=== PATIENT | female | born 1970 | race Caucasian/White ===

== ENCOUNTER → 2016-08-07 | Outpatient (CLI) | payer BC | LOC: RAD 18:39 | PROVIDERS: ATTEND Specialist | DX: C50.919 Malignant neoplasm of unspecified site of unspecified female breast (principal) | CPT/HCPCS: 78815; A9552 ==

== ENCOUNTER → 2016-08-18 | Day surgery (SDC) | payer BC | LOC: RAD 12:30 | PROVIDERS: ATTEND Specialist | PROC: 07B63ZX Excision of Left Axillary Lymphatic, Percutaneous Approach, Diagnostic (ICD-10-PCS; principal; 2016-08-18) | DX: C50.919 Malignant neoplasm of unspecified site of unspecified female breast (principal) | CPT/HCPCS: 38505; 71010; 76942; 88305; 88341; 88342 ==

== ENCOUNTER 2016-09-06 10:42 | Day surgery (SDC) | payer BC ==
[2016-09-06 11:57] LABS: ABSOLUTE BASOPHILS # (AUTO) 0.1 10^3/uL (0.0-0.2); ABSOLUTE EOSINOPHILS # (AUTO) 0.2 10^3/uL (0.0-0.6); ABSOLUTE MONOCYTES (AUTO) 0.6 10^3/uL (0.1-1.4); ABSOLUTE NEUT (AUTO) 5.2 10^3/uL (1.7-8.2); EOSINOPHILS % (AUTO) 2.4 % (0-6); HEMOGLOBIN 12.8 g/dL (12.0-15.5); HGB HCT DIFFERENCE 0.4; LYMPHOCYTES % (AUTO) 24.7 % (13-45); MEAN CORPUSCULAR HEMOGLOBIN 30.3 pg (27.0-33.4); MEAN CORPUSCULAR HGB CONC 33.8 g/dL (32.0-36.0); MEAN CORPUSCULAR VOLUME 90 fl (80-97); RED BLOOD COUNT 4.23 10^6/uL (3.72-5.28); RED CELL DISTRIBUTION WIDTH 13.1 % (11.5-14.0); SEGMENTED NEUTROPHILS % (AUTO) 63.9 % (42-78); WHITE BLOOD COUNT 8.1 10^3/uL (4.0-10.5)
[2016-09-06] MEDS ORDERED: CLINDAMYCIN 600 MG/D5W RTU 600 MG/50 ML RTUPB IV PRN (11:57)
[2016-09-06] MEDS ORDERED: BACITRACIN INJ 50,000 UNIT VIAL IR ONE (12:30)
[2016-09-06] MEDS ORDERED: MIDAZOLAM 2 MG/2 ML INJ ONE (12:41)
[2016-09-06] MEDS ORDERED: FENTANYL CITRATE INJ/PF 100 MCG/2 ML AMPUL ONE (12:41)
[2016-09-06 13:21] LABS: ANION GAP 10 (5-19); BLOOD UREA NITROGEN 11 mg/dL (7-20); CALCIUM 9.2 mg/dL (8.4-10.2); CARBON DIOXIDE 26 mmol/L (22-30); CHLORIDE 106 mmol/L (98-107); CREATININE RESULT 0.48 mg/dL (0.52-1.25); GLUCOSE 84 mg/dL (75-110); POTASSIUM 4.1 mmol/L (3.6-5.0); SODIUM 141.8 mmol/L (137-145)
[2016-09-06] MEDS ORDERED: LIDOCAINE 0.5% INJ-PF (5 MG/ML) 50 ML SDV ONE (13:27)
--- NOTE | 2016-09-06 14:56 | PDOC DISCHARGE SUMMARY ---
Discharge Summary (SDC) - Discharge Final Diagnosis: Breast cancer. Date of Surgery: 09/06/16 Discharge Date: 09/06/16 Condition: Good Treatment or Instructions: #1 discharge patient home after achieving ASU criteria. #2 continue medications per medication reconciliation sheet. #3 follow-up in office by appointment in about 1 week, call for appointment. #4 dressing to be left on until office. #5 may shower starting in 48 hours. Important to keep dressings clean and dry Discharge Diet: As Tolerated Respiratory Treatments at Home: Deep Breathing/Coughing Discharge Activity: Activity As Tolerated Report the Following to Your Physician Immediately: Shortness of Breath, Unusual Bleeding
--- NOTE | 2016-09-06 14:58 | Operative Report ---
Operative Report DATE OF SURGERY: 09/06/16 PREOPERATIVE DIAGNOSIS: Breast cancer POSTOPERATIVE DIAGNOSIS: Breast cancer OPERATION: #1 ultrasound evaluation of the right internal jugular vein. #2 insertion of Port-A-Cath via real-time access in the right internal jugular vein. #3 angiogram and interpretation. SURGEON: KATYA GALEAS COMPLIANCE ENGINEER: none ANESTHESIA: Moderate Sedation TISSUE REMOVED OR ALTERED: Not applicable. COMPLICATIONS: None ESTIMATED BLOOD LOSS: 5 mL. INTRAOPERATIVE FINDINGS: Of a satisfactory right internal jugular vein to support Port-A-Cath. Port-A-Cath in good position with tip down in right atrium. Easy egress of blood and ingress of heparinized solution. PROCEDURE: After obtaining informed consent, the patient was taken to the catheter lab and positioned supine. The [right] neck and chest were prepared with chlorhexidine and draped out with sterile linen. After the " universal timeout", in which it was verified that the patient continued to receive antibiotic, the procedure commenced. A steriley sheathed ultrasound probe was used to evaluate the [ right] internal jugular vein. Local anesthesia was infiltrated adjacent to the probe. Access into the [right] internal jugular vein was obtained using a micropuncture needle, followed by micropuncture wire and then a micropuncture catheter. This was followed by introduction of a 0.035 guidewire the tip of which was placed down into the inferior vena cava . The port sites was marked , locally anesthetized and incision made. Dissection now proceeded to the deep subcutaneous subcutaneous tissues so that a pocket for the port was made. Meticulous hemostasis was secured and the catheter was tunneled between the 2 incisions. Proximally, the catheter was now positioned using a peel-away sheath. Distally the catheter was tailored to an appropriate length and then mated to the port using the contained fixating device. The port was now placed in the pocket and the catheter optimally positioned. The port was accessed with a Wong needle and an angiogram done under digital subtraction. The findings as dictated. With adequate and satisfactory positioning, both lumens of the chamber were irrigated with heparinized solution. The wounds were now closed using interrupted 3-0 PDS to the subcutaneous tissues and a continuous subcuticular suture of 4-0 Monocryl to the skin. These are reinforced with Steri-Strips over benzoin and then dressings applied. Time: 0.2 Minute. Dose: 47 Gy Contrast: 5 mls. Isovue 300. Copies of the dictated operative report for Dr. Katya Rahman MD.
[2016-09-06 16:07] VITALS: BP 120/72
== END 2016-09-06 15:58 | disposition home or self-care (01) ==
LOC: CCL 10:42
PROVIDERS: ATTEND Surgery
PROC: 05HM33Z Insertion of Infusion Device into Right Internal Jugular Vein, Percutaneous Approach (ICD-10-PCS; principal; 2016-09-06)
DX: C50.919 Malignant neoplasm of unspecified site of unspecified female breast (principal); Z90.13 Acquired absence of bilateral breasts and nipples; Z88.1 Allergy status to other antibiotic agents; Z79.899 Other long term (current) drug therapy
CPT/HCPCS: 36415; 85025; 80048; 36561; 76937; 77001; C1752; Q9967; J2250; J3490 ×2; J3010; J1644

== ENCOUNTER 2016-09-29 09:18 | Emergency (ER) | payer BC ==
[2016-09-29 09:25] VITALS: BP 132/76
--- NOTE | 2016-09-29 09:45 | ER Document Report ---
ED Medical Screen (RME) - General Chief Complaint: Numbness Stated Complaint: ARM PAIN Notes: This 46-year-old female patient comes emergency room complaining of left proximal thigh pain and some swelling. She has recurrent breast cancer with metastases. She recently started chemotherapy, last dose was one week ago. She woke up this morning about 3 AM with pain in the left thigh. She later woke up with numbness tingling to the left upper extremity, but that is not a new finding. I have greeted and performed a rapid initial assessment of this patient. A comprehensive ED assessment and evaluation of the patient, analysis of test results and completion of the medical decision making process will be conducted by additional ED providers. TRAVEL OUTSIDE OF THE [place] IN LAST 30 DAYS: No - Related Data Allergies/Adverse Reactions: ceftriaxone [From Rocephin] Allergy (Verified 09/06/16 10:58) Hives Past Medical History - Past Medical History Cardiac Medical History: Reports: Hx Hypertension Denies: Hx Coronary Artery Disease, Hx Heart Attack Pulmonary Medical History: Denies: Hx Asthma, Hx Bronchitis, Hx COPD, Hx Pneumonia Neurological Medical History: Denies: Hx Cerebrovascular Accident, Hx Seizures Renal/ Medical History: Denies: Hx Peritoneal Dialysis Malignancy Medical History: Reports: Hx Breast Cancer - inflammatory Musculoskeltal Medical History: Denies Hx Arthritis Past Surgical History: Reports: Hx Breast Surgery - L mastectomy, Hx Mastectomy - bilaterally-cancer - Immunizations Hx Diphtheria, Pertussis, Tetanus Vaccination: Yes Physical Exam - Vital signs Vitals: Temp Pulse Resp BP Pulse Ox 97.9 F 75 20 132/76 H 97 09/29/16 09:21 09/29/16 09:21 09/29/16 09:21 09/29/16 09:21 09/29/16 09:21 Course - Vital Signs Vital signs: Temp Pulse Resp BP Pulse Ox 97.9 F 75 20 132/76 H 97 09/29/16 09:21 09/29/16 09:21 09/29/16 09:21 09/29/16 09:21 09/29/16 09:21
--- NOTE | 2016-09-29 10:20 | ER Document Report ---
ED General - General Chief Complaint: Numbness Stated Complaint: ARM PAIN Notes: Patient is complaining of pain in the left thigh which began during the night. She's never had this pain before. It's intermittently present and doesn't feel like a cramp. She is able to walk, but she continues to have the pain when walking. Has no history of injury. Patient does have a history of recurrent breast cancer metastases for which she is on chemotherapy, receiving her second dose just last week. She has noted some numbness and tingling in her toes and fingers for the past week. Patient does not note any swelling, erythema, etc. of the left leg. Patient has had some nausea but not vomiting. Has some lower abdominal pains over the past week. Denies any chest pains. Denies difficulty breathing or shortness of breath. Has had some urinary frequency. Unaware of any fevers. TRAVEL OUTSIDE OF THE [place] IN LAST 30 DAYS: No - Related Data Allergies/Adverse Reactions: ceftriaxone [From Rocephin] Allergy (Verified 09/06/16 10:58) Hives Past Medical History - Social History Smoking Status: Unknown if Ever Smoked Cigarette use (# per day): No Family History: None, Reviewed & Not Pertinent Patient has suicidal ideation: No Patient has homicidal ideation: No - Past Medical History Cardiac Medical History: Reports: Hx Hypertension Denies: Hx Coronary Artery Disease, Hx Heart Attack Pulmonary Medical History: Denies: Hx Asthma, Hx Bronchitis, Hx COPD, Hx Pneumonia Neurological Medical History: Denies: Hx Cerebrovascular Accident, Hx Seizures Malignancy Medical History: Reports: Hx Breast Cancer - Recurrent with metastases, on chemotherapy Musculoskeltal Medical History: Denies Hx Arthritis Past Surgical History: Reports: Hx Breast Surgery - Bilateral mastectomy, Hx Section, Hx Mastectomy - bilaterally-cancer - Immunizations Hx Diphtheria, Pertussis, Tetanus Vaccination: Yes Review of Systems - Review of Systems Notes: REVIEW OF SYSTEMS: CONSTITUTIONAL : Denies fever. EENT: Denies eye, ear, nose or mouth or throat pain or other symptoms. CARDIOVASCULAR: Denies chest pain. RESPIRATORY: Denies cough, chest congestion, or shortness of breath. GASTROINTESTINAL: See history of present illness. GENITOURINARY: Denies difficulty or painful urinating, blood in urine. Has some urinary frequency. MUSCULOSKELETAL: Denies back or neck pain. Denies joint pain or swelling see history of present illness. SKIN: Denies rash or skin lesions. NEUROLOGICAL: Denies LOC or altered mental status. Denies headache. Denies sensory loss or motor deficits. ALL OTHER SYSTEMS REVIEWED AND NEGATIVE. Physical Exam - Vital signs Vitals: Temp Pulse Resp BP Pulse Ox 97.9 F 75 20 132/76 H 97 09/29/16 09:21 09/29/16 09:21 09/29/16 09:21 09/29/16 09:21 09/29/16 09:21 Interpretation: Normal - Notes Notes: PHYSICAL EXAMINATION: GENERAL: Well-appearing, in no acute distress. HEAD: Atraumatic, normocephalic. EYES: Pupils equal round and reactive to light, extraocular movements intact. ENT: oropharynx clear without exudates. Moist mucous membranes. NECK: Normal range of motion, supple. LUNGS: Breath sounds clear and equal bilaterally. Bilateral mastectomy. HEART: Regular rate and rhythm without murmurs. ABDOMEN: Soft, nontender. No guarding or rebound. BACK: No tenderness throughout entire back. EXTREMITIES: Normal range of motion without pain. No swelling noted of the left thigh. No erythema. No significant tenderness on examination. Warm left leg and foot with good DP pulse NEUROLOGICAL: Normal speech, normal gait. Normal sensory, motor, and reflex exams. Awake, alert, and oriented x3. Cranial nerves normal. PSYCH: Normal mood, normal affect. SKIN: Warm, dry, no rashes. Course - Re-evaluation Re-evalutation: 09/29/16 12:32 All lab studies normal. 09/29/16 12:32 - Vital Signs Vital signs: Temp Pulse Resp BP Pulse Ox 97.9 F 76 20 132/76 H 98 09/29/16 09:21 09/29/16 09:21 09/29/16 09:21 09/29/16 09:21 09/29/16 09:21 - Laboratory Result Diagrams: 09/29/16 11:15 09/29/16 11:15 Laboratory results interpreted by me: 09/29/16 09/29/16 09/29/16 11:15 11:15 11:44 Hct 34.8 L AST 53 H ALT 88 H Urine Blood MODERATE H Ur Leukocyte Esterase SMALL H Discharge - Discharge Clinical Impression: Left leg pain Condition: Stable Disposition: HOME, SELF-CARE Additional Instructions: Leg Pain, Nonspecific We did not find an obvious cause for your leg pain. There's no sign of blood clot, infection, or other serious disease. Possible causes of vague leg pain include muscle or joint inflammation, disc disease in the lower back, pressure on the nerves in the back, or reduced blood flow through the arteries of the leg. Rest the leg. Pain can be eased with an antiinflammatory pain medicine such as ibuprofen. If the pain involves a small area, a heating pad might help. Call the doctor or return if the leg becomes swollen, weak, discolored, or increasingly painful, or if you develop any other significant change in your health. NORMAL EXAM AND WORKUP: At this time, your examination and workup show no significant abnormality. No significant abnormal physical findings were noted. All laboratory, EKG, and imaging (x-ray, CT scans, ultrasound) studies that were ordered show no significant abnormality. Although your examination and all studies that were ordered showed no significant abnormal finding, there are no examinations and no studies that are 100% accurate. There is always the possibility that some abnormality could exist and not be detected with physical examination or within the limits and capabilities of laboratory and other studies. You should return or follow up as you were instructed on your visit today for further evaluation if your symptoms do not resolve. FOLLOW-UP CARE: If you have been referred to a physician for follow-up care, call the physician s office for an appointment as you were instructed or within the next two days. If you experience worsening or a significant change in your symptoms, notify the physician immediately or return to the Emergency Department at any time for re-evaluation. At this time, your is completely normal. No evidence of blood clots in your leg. Return if you develop new or worsening symptoms of any sort.
--- NOTE | 2016-09-29 11:07 | XCELERA REPORT ---
[address] [address] Lower Extremity Venous Evaluation Name: AURELIANO AYALA Age: 46 yrs Gender: Female : 1970 Patient Status: Preadmit Patient Location: ER Study Date: 09/29/2016 10:28 AM Procedure: Color flow and duplex imaging of the veins of the left lower extremity as well as the right Common Femoral vein. Reason For Study: L thigh pain, swelling, metastatic breast cancer Ordering Physician: REBECCA SALAS Performed By: Viviane Phelps Right Sided Venous Evaluation The right common femoral vein is fully compressible. Spontaneous and phasic flow is present in the right common femoral vein. Left Sided Venous Evaluation Normal vessel filling wall to wall, compression and augmentation as well as Colour flow down to the infrageniculate veins. Critical Findings Called in to the ER at 1100. Interpretation Summary No duplex evidence of DVT or obstruction in the left lower extremity nor in the right Common Femoral vein. : REBECCA SALAS > Elgin Rahman
[2016-09-29 11:25] LABS: ABSOLUTE EOSINOPHILS # (AUTO) 0.1 10^3/uL (0.0-0.6); ABSOLUTE LYMPHOCYTES (AUTO) 1.5 10^3/uL (0.5-4.7); ABSOLUTE MONOCYTES (AUTO) 0.5 10^3/uL (0.1-1.4); ABSOLUTE NEUT (AUTO) 2.9 10^3/uL (1.7-8.2); BASOPHILS % (AUTO) 0.9 % (0-2); HEMATOCRIT 34.8 % (36.0-47.0); HEMOGLOBIN 12.3 g/dL (12.0-15.5); HGB HCT DIFFERENCE 2.1; LYMPHOCYTES % (AUTO) 29.2 % (13-45); MEAN CORPUSCULAR HGB CONC 35.4 g/dL (32.0-36.0); MEAN CORPUSCULAR VOLUME 90 fl (80-97); MONOCYTES % (AUTO) 10.5 % (3-13); RED BLOOD COUNT 3.85 10^6/uL (3.72-5.28); RED CELL DISTRIBUTION WIDTH 13.3 % (11.5-14.0); SEGMENTED NEUTROPHILS % (AUTO) 58.4 % (42-78)
[2016-09-29 11:49] LABS: ALANINE AMINOTRANSFERASE 88 U/L (9-52); ALBUMIN 3.9 g/dL (3.5-5.0); ALKALINE PHOSPHATASE 84 U/L (38-126); ANION GAP 12 (5-19); ASPARTATE AMINO TRANSFERASE 53 U/L (14-36); BILIRUBIN,DIRECT 0.1 mg/dL (0.0-0.4); BILIRUBIN,TOTAL 0.7 mg/dL (0.2-1.3); BLOOD UREA NITROGEN 12 mg/dL (7-20); CARBON DIOXIDE 24 mmol/L (22-30); CHLORIDE 105 mmol/L (98-107); CREATININE RESULT 0.57 mg/dL (0.52-1.25); GLUCOSE 87 mg/dL (75-110); POTASSIUM 4.5 mmol/L (3.6-5.0); SODIUM 140.5 mmol/L (137-145); TOTAL PROTEIN 6.6 g/dL (6.3-8.2)
[2016-09-29 12:07] LABS: APPEARANCE,URINE SLIGHTLY-CLOUDY; BILIRUBIN,URINE NEGATIVE (NEGATIVE); GLUCOSE, URINE NEGATIVE (NEGATIVE); KETONES,URINE NEGATIVE (NEGATIVE); LEUKOCYTE ESTERASE,URINE SMALL (NEGATIVE); NITRITE,URINE NEGATIVE (NEGATIVE); PROTEIN,URINE NEGATIVE (NEGATIVE); URINE SPECIFIC GRAVITY 1.017; UROBILINOGEN,URINE NEGATIVE mg/dL (<2.0)
[2016-09-29 12:13] LABS: BACTERIA,URINE 2+ /HPF; RBC,URINE 0-1 /HPF
== END 2016-09-29 12:48 | disposition home or self-care (01) ==
LOC: ER 09:18
DX: M79.652 Pain in left thigh (principal); R20.2 Paresthesia of skin; R20.0 Anesthesia of skin; C79.9 Secondary malignant neoplasm of unspecified site; R11.0 Nausea; R10.30 Lower abdominal pain, unspecified; R35.0 Frequency of micturition; I10 Essential (primary) hypertension; Z88.1 Allergy status to other antibiotic agents; Z90.13 Acquired absence of bilateral breasts and nipples; Z85.3 Personal history of malignant neoplasm of breast
CPT/HCPCS: 36415; 80053; 81001; 85025; 87086; 93971; 99284

== ENCOUNTER → 2016-11-02 | Outpatient (CLI) | payer BC ==
--- NOTE | 2016-11-02 17:07 | RADIOLOGY REPORT (SQ) ---
EXAM DESCRIPTION: PET CT SKULL/THIGH COMPLETED DATE/TIME: 11/02/2016 3:45 pm REASON FOR STUDY: BREAST CA C50.919 MALIGNANT NEOPLASM OF UNSP SITE OF UNSPECIFIED FEMAL COMPARISON: 08/07/2016. RADIONUCLIDE AND DOSE: 15.0 mCi F18 FDG The route of agent administration: Intravenous FASTING BLOOD SUGAR: 79 mg/dl CONTRAST TYPE AND DOSE: No CT contrast given. TECHNIQUE: Blood glucose level was verified. Above dose of FDG was injected intravenously. 2-D seg mented attenuation correction images were obtained from the base of the skull to the midthighs. Nonc ontrast CT images were obtained for attenuation correction and fusion with emission images. CT image s were performed without oral or intravenous contrast and are not sensitive for parenchymal lesions. A series of overlapping emission PET images were obtained. Images reviewed and manipulated at [facility] work station by the radiologist. Images stored on PACS. LIMITATIONS: None. FINDINGS: HEAD AND NECK: No areas of abnormal metabolic activity in the soft tissues of the head and neck. CHEST: Multiple pulmonary nodules measuring less than 1 cm. These have increased in size compared to the prior CT. The largest is in the right lung base adjacent to the diaphragm, currently measuring 7 mm with prior measurement of 4 mm. No measurable metabolic activity, secondary to the small size. Again seen is a left axillary lymph node, measuring 1.6 cm, with mean SUV value 4.57. Slightly smal ler compared to the prior study with previous SUV value 7. The small nodule in the high right axilla between the pectoralis minor muscle and subclavian artery is smaller and not as clearly seen on the current study. Right axillary lymph does have decreased in size with the largest currently measuring 6 mm with mean SUV value of 2.3. Previously measured 1.5 cm with SUV value 2.8. ABDOMEN AND PELVIS: No areas of abnormal metabolic activity in the abdomen or pelvis. Expected physi ologic activity is present in the genitourinary system and bowel. PROXIMAL LOWER EXTREMITIES: No areas of abnormal metabolic activity in the soft tissues of the lower extremities. SKELETON: Numerous focal bony lesions with increased activity. Right scapula, mean SUV value 3.12. Anterior body of T9, mean SUV 5.72. Previous value 3.7. The lesion on the left side of T11 current ly demonstrates no increased metabolic activity. Fracture of the right 9th rib with focal lytic area , concerning for pathologic fracture. Mean SUV value 3.01. Increased activity in the right pedicle of L2 with no noticeable lesion on CT. Mean SUV value 4.16. Lesion in the right pubic bone adjacent to the pubic symphysis, mean SUV 6.84. ADDITIONAL CT FINDINGS: No additional significant findings on the noncontrast CT images. OTHER: No other significant findings. IMPRESSION: 1. INTERVAL PROGRESSION IN THE PULMONARY NODULES CONCERNING FOR METASTATIC INVOLVEMENT, ALTHOUGH CURR ENTLY TOO SMALL TO DEMONSTRATE NOTICEABLE ACTIVITY ON PET IMAGING. 2. AXILLARY ADENOPATHY, LEFT GREATER THAN RIGHT, SLIGHTLY IMPROVED. 3. NUMEROUS BONY LESIONS DESCRIBED CONSISTENT WITH METASTASES. UNCHANGED OR SLIGHTLY IMPROVED. TECHNICAL DOCUMENTATION: JOB ID: [id number] [employer]- All Rights Reserved
== END ==
LOC: RAD 10-30 16:32
PROVIDERS: ATTEND Specialist
DX: C50.919 Malignant neoplasm of unspecified site of unspecified female breast (principal)
CPT/HCPCS: 78815; A9552

== ENCOUNTER → 2016-11-08 | Outpatient (CLI) | payer BC ==
[2016-11-08 14:26] LABS: ABSOLUTE BASOPHILS # (AUTO) 0.1 10^3/uL (0.0-0.2); ABSOLUTE EOSINOPHILS # (AUTO) 0.1 10^3/uL (0.0-0.6); ABSOLUTE LYMPHOCYTES (AUTO) 1.2 10^3/uL (0.5-4.7); ABSOLUTE MONOCYTES (AUTO) 0.1 10^3/uL (0.1-1.4); ABSOLUTE NEUT (AUTO) 3.2 10^3/uL (1.7-8.2); BASOPHILS % (AUTO) 1.4 % (0-2); EOSINOPHILS % (AUTO) 2.7 % (0-6); HEMATOCRIT 35.2 % (36.0-47.0); HEMOGLOBIN 11.8 g/dL (12.0-15.5); HGB HCT DIFFERENCE 0.2; LYMPHOCYTES % (AUTO) 25.3 % (13-45); MEAN CORPUSCULAR HEMOGLOBIN 32.4 pg (27.0-33.4); MEAN CORPUSCULAR HGB CONC 33.6 g/dL (32.0-36.0); MEAN CORPUSCULAR VOLUME 96 fl (80-97); MONOCYTES % (AUTO) 1.8 % (3-13); RED BLOOD COUNT 3.65 10^6/uL (3.72-5.28); RED CELL DISTRIBUTION WIDTH 17.6 % (11.5-14.0); SEGMENTED NEUTROPHILS % (AUTO) 68.8 % (42-78); WHITE BLOOD COUNT 4.7 10^3/uL (4.0-10.5)
== END ==
LOC: LAB 13:54
PROVIDERS: ATTEND Radiology Radiation Oncology
DX: C50.412 Malignant neoplasm of upper-outer quadrant of left female breast (principal); C77.3 Secondary and unspecified malignant neoplasm of axilla and upper limb lymph nodes; C79.51 Secondary malignant neoplasm of bone; C78.01 Secondary malignant neoplasm of right lung; Z17.1 Estrogen receptor negative status [ER-]
CPT/HCPCS: 36415; 85025

== ENCOUNTER → 2016-12-19 | Outpatient (CLI) | payer BC ==
--- NOTE | 2016-12-19 13:44 | RADIOLOGY REPORT (SQ) ---
EXAM DESCRIPTION: NM WHOLE BODY BONE SCAN COMPLETED DATE/TIME: 12/19/2016 12:24 pm REASON FOR STUDY: BREAST CA (C50.412) C50.412 MALIG NEOPLASM OF UPPER-OUTER QUADRANT OF LEFT FEMAL COMPARISON: PET-CT 11/02/2016, 08/07/2016 RADIONUCLIDE AND DOSE: 20.2 millicuries Tc99m MDP. The route of agent administration: Intravenous. ADDITIONAL DRUGS AND DOSES: None. TECHNIQUE: Routine delayed images at 3 hours post radionuclide injection acquired of the bony skelet on including anterior and posterior whole-body projections and additional focused images as needed. LIMITATIONS: None. FINDINGS: BONES: There is increased activity along the right lateral 9th rib, which correlates with bony sclerosis on PET-CT 11/02/2016. There is increased uptake along the left anterior 7th or 8th rib which may represent a bony metastati c lesion also No increased uptake over the skeletal elsewhere worrisome for metastatic disease. KIDNEYS: Symmetric excretion without obstruction. OTHER: No other significant finding. IMPRESSION: Right and left rib activity worrisome for metastatic disease COMMENT: PQRS 3570F: Current bone scan is compared with any available plain radiographs, prior bone scans, and CT/MRI. TECHNICAL DOCUMENTATION: JOB ID: [id number] [employer]- All Rights Reserved
== END ==
LOC: RAD 08:08
PROVIDERS: ATTEND Radiology Radiation Oncology
DX: C50.412 Malignant neoplasm of upper-outer quadrant of left female breast (principal); C77.3 Secondary and unspecified malignant neoplasm of axilla and upper limb lymph nodes; Z17.1 Estrogen receptor negative status [ER-]
CPT/HCPCS: 78306; A9561; Q9969

== ENCOUNTER → 2017-03-06 | Outpatient (CLI) | payer BC ==
--- NOTE | 2017-03-07 08:36 | RADIOLOGY REPORT (SQ) ---
EXAM DESCRIPTION: NM WHOLE BODY BONE SCAN COMPLETED DATE/TIME: 03/06/2017 12:51 pm REASON FOR STUDY: BREAST CA/BONE CA C50.112 MALIGNANT NEOPLASM OF CENTRAL PORTION OF LEFT FEMALE COMPARISON: 12/19/2016. RADIONUCLIDE AND DOSE: 20.0 millicuries Tc99m MDP. The route of agent administration: Intravenous. ADDITIONAL DRUGS AND DOSES: None. TECHNIQUE: Routine delayed images at 3 hour post radionuclide injection acquired of the bony skeleto n including anterior and posterior whole-body projections and additional focused images as needed. LIMITATIONS: None. FINDINGS: BONES: Focal areas of activity in the right and left ribs unchanged. No new areas of acti vity. Areas of activity in several joints of the extremities consistent with degenerative change. KIDNEYS: Symmetric excretion without obstruction. OTHER: No other significant finding. IMPRESSION: RIGHT AND LEFT RIB ACTIVITY UNCHANGED. NO NEW LESIONS. COMMENT: Quality measure 147: Current bone scan is compared with any available plain radiographs, p rior bone scans, and CT/MRI. TECHNICAL DOCUMENTATION: JOB ID: [id number] [employer]- All Rights Reserved
== END ==
LOC: RAD 08:25
PROVIDERS: ATTEND Physician Assistant
DX: C50.112 Malignant neoplasm of central portion of left female breast (principal); C79.51 Secondary malignant neoplasm of bone
CPT/HCPCS: 78306; A9561; Q9969

== ENCOUNTER → 2017-03-08 | Outpatient (CLI) | payer BC ==
--- NOTE | 2017-03-08 10:40 | RADIOLOGY REPORT (SQ) ---
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 TECHNIQUE: CT scan of the chest performed using helical scanning technique with dynamic intravenous contrast injection. Images reviewed with lung, soft tissue and bone windows. Reconstructed coronal and sagittal MPR images reviewed. All images stored on PACS. All CT scanners at this facility use dose modulation, iterative reconstruction, and/or weight based d osing when appropriate to reduce radiation dose to as low as reasonably achievable (ALARA). [facility]: Dose Right [facility]: CareDose [facility]: Dose Right [facility]: Teradose 4D [facility]: [employer] CONTRAST TYPE AND DOSE: 100 cc Isovue 370- low osmolar. RENAL FUNCTION: Creatinine 0.4 BUN 13 RADIATION DOSE: Total exam DLP: 3547 mGy cm LIMITATIONS: None. FINDINGS: LUNGS AND PLEURA: No opacities, nodules, masses. No pneumothorax. No effusions. HILAR AND MEDIASTINAL STRUCTURES: No identified masses or abnormal nodes. HEART AND VASCULAR STRUCTURES: No aneurysm or dissection. No central pulmonary emboli. No pericardi al effusion. HARDWARE: An injection port on the right. UPPER ABDOMEN: See separate report of the CT of the abdomen. THYROID AND OTHER SOFT TISSUES: No masses. No adenopathy. BONES: There is a low-density lesion with a sclerotic margin in the anterior aspect of the T8 vertebr al body. A similar appearing lesion is seen in the posterior lateral aspect of the T11 vertebral bod y superiorly. OTHER: No other significant finding. IMPRESSION: 1. No pulmonary metastases are present. 2. There are 2 vertebral body lesions as described. These sclerotic margins suggest benignity, but metastases cannot be excluded. Note: No abnormal uptake is seen on the bone scan from March 06 in the thoracic spine. TECHNICAL DOCUMENTATION: JOB ID: [id number] Quality ID # [id number]: Final reports with documentation of one or more dose reduction techniques (e.g., Au tomated exposure control, adjustment of the mA and/or kV according to patient size, use of iterative reconstruction technique) 2010 [employer]- All Rights Reserved
--- NOTE | 2017-03-08 10:53 | RADIOLOGY REPORT (SQ) ---
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 TECHNIQUE: CT scan of the abdomen and pelvis performed using helical scanning technique with dynamic intravenous contrast injection. No oral contrast. Images reviewed with lung, soft tissue, and bone windows. Reconstructed coronal and sagittal MPR images reviewed. Delayed images for evaluation of the urinary system also acquired. All images stored on PACS. All CT scanners at this facility use dose modulation, iterative reconstruction, and/or weight based d osing when appropriate to reduce radiation dose to as low as reasonably achievable (ALARA). [facility]: Dose Right [facility]: CareDose [facility]: Dose Right [facility]: Teradose 4D [facility]: [employer] CONTRAST TYPE AND DOSE: contrast/concentration: Isovue 370.00 mg/ml; Total Contrast Delivered: 100.0 ml; Total Saline Delivered: 72.0 ml RENAL FUNCTION: Creatinine 0.4 BUN 13 RADIATION DOSE: Up-to-date CT equipment and radiation dose reduction techniques were employed. CTDIv ol: 12.7 - 27.8 mGy. DLP: 3547 mGy-cm.. LIMITATIONS: None. FINDINGS: LOWER CHEST: See separate report of the CT of the chest. LIVER: Normal size. No masses. No dilated ducts. SPLEEN: Normal size. No focal lesions. PANCREAS: No masses. No significant calcifications. No adjacent inflammation or peripancreatic fluid collections. Pancreatic duct not dilated. GALLBLADDER: No identified stones by CT criteria. No inflammatory changes to suggest cholecystitis. ADRENAL GLANDS: No significant masses or asymmetry. RIGHT KIDNEY AND URETER: No solid masses. No significant calcifications. No hydronephrosis or hyd roureter. LEFT KIDNEY AND URETER: No solid masses. No significant calcifications. No hydronephrosis or hydr oureter. AORTA AND VESSELS: No aneurysm. No dissection. Renal arteries, SMA, celiac without stenosis. RETROPERITONEUM: No retroperitoneal adenopathy, hemorrhage or masses. BOWEL AND PERITONEAL CAVITY: No masses or inflammatory changes. No free fluid or peritoneal masses. APPENDIX: Not identified. PELVIS: Uterus is normal for age. There is no adnexal mass or fluid collection. ABDOMINAL WALL: No masses. No hernias. BONES: There is what appears to be a healing rib fracture on the right in the 9th rib. OTHER: No other significant finding. IMPRESSION: No abdominal or pelvic metastases are seen. There is a sclerotic area right 9th rib wolfgang t is the appearance of a healing fracture, but a blastic metastasis cannot be excluded completely. TECHNICAL DOCUMENTATION: JOB ID: [id number] Quality ID # [id number]: Final reports with documentation of one or more dose reduction techniques (e.g., Au tomated exposure control, adjustment of the mA and/or kV according to patient size, use of iterative reconstruction technique) 2010 [employer]- All Rights Reserved
== END ==
LOC: RAD 08:26
PROVIDERS: ATTEND Physician Assistant
DX: C50.119 Malignant neoplasm of central portion of unspecified female breast (principal); C79.51 Secondary malignant neoplasm of bone
CPT/HCPCS: 71260; 74177

== ENCOUNTER → 2017-05-29 | Outpatient (CLI) | payer BC ==
--- NOTE | 2017-05-29 13:24 | RADIOLOGY REPORT (SQ) ---
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 The route of agent administration: Intravenous. ADDITIONAL DRUGS AND DOSES: None. TECHNIQUE: Routine delayed images at 3 hours post radionuclide injection acquired of the bony skelet on including anterior and posterior whole-body projections and additional focused images as needed. LIMITATIONS: None. FINDINGS: BONES: There is stable uptake in right and left ribs as described on prior exams. There i s increased uptake in the medial right scapula. Compared to the study from 12/19/2016. No other sign ificant abnormal skeletal uptake is demonstrated. KIDNEYS: Symmetric excretion without obstruction. OTHER: No other significant finding. IMPRESSION: Stable uptake in the right and left ribs. Increasing uptake in the right scapula. COMMENT: Quality measure 147: Current bone scan is compared with any available plain radiographs, p rior bone scans, and CT/MRI. TECHNICAL DOCUMENTATION: JOB ID: [id number] [employer]- All Rights Reserved
== END ==
LOC: RAD 08:28
PROVIDERS: ATTEND Internal Medicine Hematology & Oncology
DX: C79.51 Secondary malignant neoplasm of bone (principal); C50.119 Malignant neoplasm of central portion of unspecified female breast
CPT/HCPCS: 78306; A9561; Q9969

== ENCOUNTER → 2017-06-01 | Outpatient (CLI) | payer BC ==
--- NOTE | 2017-06-01 10:58 | RADIOLOGY REPORT (SQ) ---
EXAM DESCRIPTION: CT CHEST WITH; CT ABD/PELVIS WITH IV ORAL COMPLETED DATE/TIME: 06/01/2017 9:14 am REASON FOR STUDY: C50.112 MALIGNANT NEOPLASM OF CENTRAL PORTION OF LEFT FEMALE BREAST C50.112 MALIG NANT NEOPLASM OF CENTRAL PORTION OF LEFT FEMALE COMPARISON: PET-CT 11/02/2016, 08/07/2016 Bone scan 12/19/2016, 03/06/2017, 05/29/2017 CT chest abdomen pelvis 03/08/2017 CONTRAST TYPE AND DOSE: contrast/concentration: Isovue 370.00 mg/ml; Total Contrast Delivered: 100.0 ml; Total Saline Delivered: 72.0 ml RENAL FUNCTION: Creatinine 0.6 TECHNIQUE: CT scan of the chest performed using helical scanning technique with dynamic intravenous contrast injection. Images reviewed with lung, soft tissue and bone windows. Reconstructed coronal a nd sagittal MPR images reviewed. All images stored on PACS. CT scan of the abdomen and pelvis performed with intravenous and with oral contrastusing helical scan mario technique with dynamic intravenous contrast injection. Images reviewed with lung, soft tissue a nd bone windows. Reconstructed coronal and sagittal MPR images reviewed. Delayed images for evaluat ion of the urinary system also acquired and evaluated. All images stored on PACS. All CT scanners at this facility use dose modulation, iterative reconstruction, and/or weight based d osing when appropriate to reduce radiation dose to as low as reasonably achievable (ALARA). [facility]: Dose Right [facility]: CareDose [facility]: Dose Right [facility]: Teradose 4D [facility]: [employer] RADIATION DOSE: CT Rad equipment meets quality standard of care and radiation dose reduction techniq ues were employed. CTDIvol: 12.1 - 26.4 mGy. DLP: 3468 mGy-cm. . LIMITATIONS: None. FINDINGS: CHEST: LUNGS AND PLEURA: The tiny bilateral lung nodules seen on prior studies has completely resolved. The re is a single persistent nodule just above the right hemidiaphragm on axial image 73, 6 mm in size ( was 9 mm in size on 03/08/2017). No pleural effusions. No pneumothorax. HILAR AND MEDIASTINAL STRUCTURES: No identified masses or abnormal nodes. HEART AND VASCULAR STRUCTURES: No aneurysm or dissection. No central pulmonary emboli. No pericardi al effusion. HARDWARE: Right-sided permanent central line tip superior vena cava THYROID AND OTHER SOFT TISSUES: Thyroid unremarkable. Bilateral mastectomy. BONES: 13 mm lytic lesion with peripheral sclerosis anterior T9 vertebral body, similar compared to . OTHER: No other significant finding. ABDOMEN AND PELVIS: LIVER: Normal size. No masses. No dilated ducts. Fatty infiltration of the liver with focal sparing at the gallbladder fossa SPLEEN: Normal size. No focal lesions. PANCREAS: No masses. No significant calcifications. No adjacent inflammation or peripancreatic fluid collections. Pancreatic duct not dilated. GALLBLADDER: No identified stones by CT criteria. No inflammatory changes to suggest cholecystitis. ADRENAL GLANDS: No significant masses or asymmetry. RIGHT KIDNEY AND URETER: No solid masses. No significant calcification. No hydronephrosis or hydroure ter. LEFT KIDNEY AND URETER: No solid masses. No significant calcification. No hydronephrosis or hydrouret er. AORTA AND VESSELS: No aneurysm. No dissection. Renal arteries, SMA, celiac without stenosis. RETROPERITONEUM: No retroperitoneal adenopathy, hemorrhage or masses. BOWEL AND PERITONEAL CAVITY: No masses or inflammatory changes. No free fluid or peritoneal masses. APPENDIX: Normal. ABDOMINAL WALL: No masses. No hernias. BONES: Tiny focus of sclerosis less than 5 mm diameter left proximal femur and pelvis. 1 cm lytic le bryan with peripheral sclerosis left T11 vertebral body/pedicle. These findings are similar compared to 03/08/2017 PELVIS: Normal size female pelvic organs. No masses or adenopathy. No free pelvic fluid. IMPRESSION: Single residual right basilar pulmonary nodule smaller than on previous studies Metastatic lesions at T9, T11, bony pelvis and left proximal femur exhibit bony sclerosis, likely randi atment response TECHNICAL DOCUMENTATION: JOB ID: [id number] Quality ID # [id number]: Final reports with documentation of one or more dose reduction techniques (e.g., Au tomated exposure control, adjustment of the mA and/or kV according to patient size, use of iterative reconstruction technique) 2010 [employer]- All Rights Reserved
== END ==
LOC: RAD 08:29
PROVIDERS: ATTEND Internal Medicine Hematology & Oncology
DX: C50.112 Malignant neoplasm of central portion of left female breast (principal)
CPT/HCPCS: 71260; 74177

== ENCOUNTER 2017-06-11 12:29 | Emergency (ER) | payer BC ==
[2017-06-11 13:02] VITALS: BP 125/69
--- NOTE | 2017-06-11 14:24 | ER Document Report ---
ED Extremity Problem, Lower - General Chief Complaint: Foot Pain Stated Complaint: LEFT FOOT PAIN Time Seen by Provider: 06/11/17 13:28 Mode of Arrival: Ambulatory Information source: Patient, FORMERLY [facility], [facility]–1983 Records Notes: This 47-year-old female patient comes emergency room complaining of left foot pain and swelling for the last 4 days. Is very painful when she tries to walk. She does have a history of breast cancer with metastases to her left and right ribs and to her right scapula. She had a bone scan on 05/29/2017 which did not show any involvement other than stable metastases to the right left ribs and increasing signal in the right scapular metastasis. Nothing in the feet. There is no known injury to the foot. TRAVEL OUTSIDE OF THE [place] IN LAST 30 DAYS: No - Related Data Allergies/Adverse Reactions: diphenhydramine [From Benadryl] Allergy (Mild, Unverified 06/01/17 09:37) Hives Iodinated Contrast- Oral and IV Dye Allergy (Mild, Unverified 06/01/17 09:44) Generalized Itching ceftriaxone [From Rocephin] Allergy (Verified 09/06/16 10:58) Hives Home Medications: Current Home Medications Anastrozole [Arimidex 1 mg Tablet] 1 mg PO DAILY 06/11/17 [History] Ergocalciferol (Vitamin D2) [Drisdol 50,000 Unit (1.25MG) Capsule] 50,000 unit PO [id number] 06/11/17 [History] Gabapentin [Gabapentin] 100 mg PO Q8 06/11/17 [History] Oxycodone HCl [Oxy-Ir 5 mg Tablet] 10 mg PO Q6HP PRN 06/11/17 [History] Past Medical History - General Information source: Patient, FORMERLY [facility], 1929–[facility] Records - Social History Smoking Status: Former Smoker Cigarette use (# per day): No Chew tobacco use (# tins/day): No Smoking Education Provided: No Frequency of alcohol use: None Drug Abuse: None Family History: None, Reviewed & Not Pertinent Patient has suicidal ideation: No Patient has homicidal ideation: No - Past Medical History Cardiac Medical History: Reports: Hx Hypertension Pulmonary Medical History: Reports: None Neurological Medical History: Reports: None Endocrine Medical History: Reports: None Renal/ Medical History: Reports: None Malignancy Medical History: Reports: Hx Breast Cancer - Recurrent with metastases, on chemotherapy GI Medical History: Reports: None Musculoskeltal Medical History: Reports Other - She does have breast cancer metastases to the right and left ribs and the r Skin Medical History: Reports None Psychiatric Medical History: Reports: None Past Surgical History: Reports: Hx Breast Surgery - Bilateral mastectomy, Hx Section, Hx Mastectomy - bilaterally-cancer - Immunizations Hx Diphtheria, Pertussis, Tetanus Vaccination: Yes Review of Systems - Review of Systems Constitutional: No symptoms reported EENT: No symptoms reported Cardiovascular: No symptoms reported Respiratory: No symptoms reported Gastrointestinal: No symptoms reported Genitourinary: No symptoms reported Female Genitourinary: Post menopausal Musculoskeletal: See HPI Skin: No symptoms reported Hematologic/Lymphatic: No symptoms reported Neurological/Psychological: No symptoms reported Physical Exam - Vital signs Vitals: Temp Pulse Resp BP Pulse Ox 98.4 F 80 18 125/69 97 06/11/17 13:01 06/11/17 13:01 06/11/17 13:01 06/11/17 13:01 06/11/17 13:01 - General General appearance: Appears well, Alert In distress: None - HEENT Head: Normocephalic, Atraumatic Eyes: Normal Pupils: PERRL Neck: Normal - Respiratory Respiratory status: No respiratory distress Breath sounds: Normal - Cardiovascular Rhythm: Regular Heart sounds: Normal auscultation Murmur: No - Abdominal Inspection: Normal Bowel sounds: Normal Tenderness: Nontender - Back Back: Normal - Extremities General upper extremity: Normal inspection General lower extremity: Other - Left foot is edematous and very tender over the mid to proximal fourth and fifth metatarsals. There is no erythema. - Neurological Neuro grossly intact: Yes - Psychological Associated symptoms: Normal affect, Normal mood - Skin Skin Temperature: Warm Skin Moisture: Dry Skin Color: Normal Course - Re-evaluation Re-evalutation: 06/11/17 15:09 Incomplete, nondisplaced fracture near the base of the fifth metatarsal. 06/11/17 15:13 The patient does have a walker at home, we will provide crutches here to help her get about more easily. - Vital Signs Vital signs: Temp Pulse Resp BP Pulse Ox 98.4 F 80 18 125/69 97 06/11/17 13:01 06/11/17 13:01 06/11/17 13:01 06/11/17 13:01 06/11/17 13:01 - Diagnostic Test Radiology reviewed: Image reviewed, Reports reviewed Discharge - Discharge Clinical Impression: Stress fracture of foot Qualifiers: Encounter type: initial encounter Laterality: left Qualified Code(s): M84.375A - Stress fracture, left foot, initial encounter for fracture Condition: Stable Disposition: HOME, SELF-CARE Additional Instructions: Foot Fracture: You have a fracture in one of the small bones of the foot. Some foot fractures are very serious, while others are no more serious than a sprain. This fracture should heal well, but requires protection for proper healing. Initially, you should elevate and ice pack the foot, and bear no weight on it. Usually, a cast or a walking boot will be required. Some milder foot fractures can be managed with temporary rest, then a firm shoe. Your physician has determined the seriousness of your foot fracture and has outlined the treatment plan for you. You should follow up as instructed to insure that the fracture heals without complications. Call the doctor or return at once if pain or swelling becomes severe, if a re-injury occurs, or if any part of the foot becomes numb. //////////////////////////////////////////////////////////////////////////////// //////////////////////////////////////////////////////////////////////////////// You have a stress fracture of the proximal left fifth metatarsal. Use the crutches to limit or avoid weightbearing. Elevate foot all the time. Call the [facility] on Monday to schedule follow-up appointment this week. RETURN TO THE EMERGENCY ROOM IF ANY NEW OR WORSENING SYMPTOMS. Forms: Return to Work Referrals: [facility] ([place] [Provider Group] - Follow up in 3-5 days (Call on Monday morning for an appointment this week.)
--- NOTE | 2017-06-11 14:46 | RADIOLOGY REPORT (SQ) ---
EXAM DESCRIPTION: FOOT LEFT COMPLETE COMPLETED DATE/TIME: 06/11/2017 1:57 pm REASON FOR STUDY: pain, swelling left mid 4th 5th MT's COMPARISON: None. NUMBER OF VIEWS: Three views. TECHNIQUE: AP, lateral and oblique radiographic images acquired of the left foot. Bones otherwise intact. LIMITATIONS: None. FINDINGS: MINERALIZATION: Normal. BONES: There is a subtle horizontal lucency involving the lateral aspect of the 5th metatarsal base s uggestive of an incomplete fracture. JOINTS: No effusions. SOFT TISSUES: Mild diffuse soft tissue swelling. OTHER: No other significant finding. IMPRESSION: APPARENT INCOMPLETE/ NONDISPLACED FRACTURE INVOLVING THE BASE OF THE 5TH METATARSAL. CO RRELATE WITH POINT TENDERNESS AND ATTENTION ON FOLLOW-UP STUDIES. TECHNICAL DOCUMENTATION: JOB ID: [id number] [employer]- All Rights Reserved
== END 2017-06-11 15:25 | disposition home or self-care (01) ==
LOC: ER 12:29
DX: M84.375A Stress fracture, left foot, initial encounter for fracture (principal); M79.672 Pain in left foot; M79.89 Other specified soft tissue disorders; Z79.899 Other long term (current) drug therapy; Z87.891 Personal history of nicotine dependence; X58.XXXA Exposure to other specified factors, initial encounter
CPT/HCPCS: 99283

== ENCOUNTER → 2017-06-19 | Outpatient (CLI) | payer BC ==
--- NOTE | 2017-06-19 10:01 | WOMENS IMAGING REPORT ---
EXAM DESCRIPTION: BONE DENSITY HIP/SPINE COMPLETED DATE/TIME: 06/19/2017 9:30 am REASON FOR STUDY: NONDISPLACED FRACTURE OF FIFTH METATARSAL; S92.355A S92.355A NONDISP FX OF FIFTH METATARSAL BONE, LEFT FOOT, INI COMPARISON: None. TECHNIQUE: Dual-Energy X-ray Absorptiometry (DEXA) of the AP Spine and Hip. LIMITATIONS: None. FINDINGS: LUMBAR SPINE: The bone mineral density (BMD) measured from L1-L4 in the AP projection correlates with a T-score of -1.4, which is osteopenia as defined by the World Health Organization. HIP: The bone mineral density (BMD) measured in the left hip correlates with a T-score of -0.6, which is n ormal as defined by the World Health Organization. IMPRESSION: 1. LUMBAR SPINE: OSTEOPENIA. 2. HIP: NORMAL. COMMENT: The World Health Organization defines low BMD as follows: T-score: Normal: Greater than -1.0 Osteopenia: Between -1.0 and -2.5 Osteoporosis: Less than -2.5 without fractures Established osteoporosis: Less than -2.5 with fractures In general, you may wish to consider: Diagnosis Treatment Follow-up DEXA Normal BMD Prevention 2-3 years Osteopenia Prevention/Therapy 1-2 years Osteoporosis Therapy Yearly TECHNICAL DOCUMENTATION: JOB ID: [id number]- All Rights Reserved
== END ==
LOC: WI 09:16
PROVIDERS: ATTEND Physician Assistant Surgical
DX: S92.355A Nondisplaced fracture of fifth metatarsal bone, left foot, initial encounter for closed fracture (principal); X58.XXXA Exposure to other specified factors, initial encounter
CPT/HCPCS: 77080

== ENCOUNTER → 2017-07-10 | Outpatient (CLI) | payer BC ==
--- NOTE | 2017-07-10 10:19 | RADIOLOGY REPORT (SQ) ---
EXAM DESCRIPTION: MRI HEAD COMBO COMPLETED DATE/TIME: 07/10/2017 8:26 am REASON FOR STUDY: BREAST CA (C50.119), HEADACHE (R51) C50.119 MALIGNANT NEOPLASM OF CENTRAL PORTION OF UNSP FEMALE R51 HEADACHE COMPARISON: None. TECHNIQUE: Multiplanar imaging includes noncontrasted T1, T2, FLAIR, diffusion with ADC map and post gadolinium contrast T1 sequences. Images stored on PACS. CONTRAST TYPE AND DOSE: 20 mL Multihance. RENAL FUNCTION: GFR > 60. LIMITATIONS: None. FINDINGS: ANATOMY: No anomalies. Normal vascular flow voids. Pituitary fossa normal. CSF SPACES: Normal in size and contour. No hemorrhage. CEREBRUM: Sulci and gyri normal in size and contour. Normal white matter signal on FLAIR imaging. No evidence of hemorrhage, mass, or extraaxial fluid collection. No abnormal enhancement post contrast. POSTERIOR FOSSA: No signal alteration. No hemorrhage. No edema, masses, or mass effect. Internal dima tory canals, cerebellopontine angles, mastoids normal. No enhancing lesions. No abnormal enhancement post contrast. DIFFUSION IMAGING: Negative for acute or subacute infarction. ORBITS: No masses. Globes normal. PARANASAL SINUSES: No fluid levels. Mucosa normal. OTHER: No other significant finding. IMPRESSION: Normal brain. EVIDENCE OF ACUTE STROKE: NO. TECHNICAL DOCUMENTATION: JOB ID: [id number]- All Rights Reserved
== END ==
LOC: RAD 07:20
PROVIDERS: ATTEND Internal Medicine Hematology & Oncology
DX: C50.119 Malignant neoplasm of central portion of unspecified female breast (principal); R51 Headache
CPT/HCPCS: 82565; 70553; A9577